=== PATIENT | male | born 1990 | race Caucasian/White ===

== ENCOUNTER → 2019-01-05 | Outpatient (CLI) | payer OTHER ==
[~2019-01-05] MED LIST: HYDACE5 PO
[2019-01-08 03:07] LABS: CHLAMYDIA TRACHOMATIS, NAA Positive (Negative); NEISSERIA GONORRHOEAE, NAA Negative (Negative)
== END ==
LOC: LAB 11:10 → LAB SHORT 11:10
PROVIDERS: Registered Nurse Community Health
DX: Z20.2 Contact with and (suspected) exposure to infections with a predominantly sexual mode of transmission (principal)
CPT/HCPCS: 87491; 87591

== ENCOUNTER 2021-02-03 18:32 | Emergency (ER) | payer OTHER ==
[~2021-02-03] VITALS: Ht 175.3 cm; Wt 68.0 kg
[2021-02-03] MEDS ORDERED: CYCL10 PO (20:42)
[2021-02-03] MEDS ORDERED: LIDO700A20 TOP (20:42)
== END 2021-02-03 21:07 | disposition home or self-care (01) ==
LOC: ER 18:32
DX: M54.6 Pain in thoracic spine (principal); G89.29 Other chronic pain
CPT/HCPCS: 72070; 96372; 99283-25; A9270; J1885

== ENCOUNTER → 2023-03-12 | Outpatient (CLI) | payer SELFPAY ==
[~2023-03-12] MED LIST changes: +CYCL10 PO; +LIDO700A20 TOP
[2023-03-13 16:07] LABS: HIV AB/P24 AG SCREEN Non Reactive (Non Reactive)
[2023-03-14 01:07] LABS: CHLAMYDIA TRACHOMATIS, NAA Negative (Negative)
== END | disposition home or self-care (01) ==
LOC: LAB SHORT 17:18 → LAB 17:18
PROVIDERS: Family Medicine
DX: Z11.3 Encounter for screening for infections with a predominantly sexual mode of transmission (principal)
CPT/HCPCS: 86592; 86803; 87389; 87491; 87591